=== PATIENT | male | born 1975 | race Caucasian/White ===

== ENCOUNTER 2025-03-09 10:46 | Emergency (ER) | payer MEDICAID, OTHER ==
[~2025-03-09] VITALS: Ht 182.9 cm; Wt 91.6 kg
[~2025-03-09 10:46] MED LIST: CYCL-1 PO
[2025-03-09 10:53] VITALS: TEMP 98.2
[2025-03-09 11:27] LABS: CREATININE 0.97 MG/DL (0.60-1.10); PRO BRAIN NATRIURETIC PEPTIDE < 30 PG/ML (0-125); TOTAL CARBON DIOXIDE 27.7 MMOL/L (24-32); eCRCL 100 ML/MIN; eGFR 82 ML/MIN
--- NOTE | 2025-03-09 11:27 | RADIOLOGY REPORT ---
CHEST RADIOGRAPH Indication: CP Technique: Single frontal view of the chest was obtained Comparison: None FINDINGS: Lines and Tubes: None Lungs: No focal consolidation. Pleura: No effusion. No pneumothorax. Cardiomediastinal contours: Unremarkable Bones: No acute osseous abnormality. IMPRESSION: No acute cardiopulmonary disease.
[2025-03-09 11:29] LABS: MEAN PLATELET VOLUME 9.4 FL (7.4-10.4)
--- NOTE | 2025-03-09 11:33 | ELECTROCARDIOGRAPH REPORT ---
[facility] Test Date: 2025-03-09 Test Time: 10:51:24 Pat Name: DONITA MCGRAW Department: EMERGENCY ROOM [id number] Room: Gender: M [facility]osp[facility] Consultant: TEJAL : 1975 Requested By: DAVE HEBERT Order Number: [id number] Reading MD: Dr. HOSESIN Phelps Measurements Intervals [place] Rate: 116 P: 75 VA: 148 QRS: 0 QRSD: 83 T: 48 QT: 333 QTc: 463 Interpretive Statements Sinus tachycardia Consider right atrial enlargement Indeterminate axis RSR' in V1 or V2, probably normal variant Electronically Signed On 03-10-2025 17:26:[address] HOSSEIN Phelps Please click the below link to view image of tracing.
[2025-03-09 11:56] LABS: RED CELL DISTRIBUTION WIDTH 12.7 % (11.5-14.5)
--- NOTE | 2025-03-09 12:11 | Physician Documentation ---
History of Present Illness ~ Chief Complaint: Chest Pain Stated Complaint: CHEST PAIN/HEART BURN/SHOULDER AND ARM PAIN Time Seen by MD: 11:54 HPI 50-year-old male presents to the ED with a complaint of chest burning and indigestion for several hours after taking a nap. States he does have a history of GERD or acid indigestion. Has been taking omeprazole for several years. States he felt like he was panicking during the incident. He has any history of heart failure [place] or any other cardiac abnormalities States he continues to have a burning sharp pain in the midepigastric region That he has had episodes previously where he vomited up streaks of blood. He adds that he thinks he may have an ulcer. Day of Onset: Mar 09, 2025 Tetanus within 5 Years?: Yes Allergies: Coded Allergies: Antihistamines - Alkylamine (Verified Allergy, Unknown, 05/21/17) Active Prescriptions See Medication Reconciliation Form. Medication Reconciliation Scheduled PRN Cyclobenzaprine* (Cyclobenzaprine*), 1 TABLET PO Q8H PRN for muscle spasms Past Medical History Past Medical History: No Pertinent History Past Surgical History: noncontributory Alcohol Use: None Drug Use: none Lives with: Family Lives In: Home Occupation: employed Review of Systems All Other Systems at this time: Reviewed and Negative ROS As stated above in the HPI, otherwise all systems are reviewed and negative. Physical Exam Vital Signs: Temperature: 98.2, Source: Oral, Heart Rate: 109, Respiratory Rate: 16, BP: 134/112, Pulse Oximetry: 99, Weight: 91.600 Oxygen Flow Rate: 0 Physical Exam General: Alert, no apparent distress. Respiratory: Lungs clear, no respiratory distress. Cardiovascular: Regular rate and rhythm, no murmurs. Gastrointestinal: Soft, tender midepigastric Extremities: Normal range of motion, no deformity. Neurologic: Oriented x4. Psychiatric: Normal mood and affect. Skin: Normal color, warm and dry. No edema, no ecchymosis. Progress Results/Orders Results/Orders Orders - PALOMO ALLEN RESIDENT IN DIAGNOSTIC RADIOLOGY Lidocaine 2% Viscous (Xylocaine 2% Visco (03/09/25 12:00) Ct Abdomen Pelvis (03/09/25 12:30) Completed Orders - PALOMO ALLEN RESIDENT IN DIAGNOSTIC RADIOLOGY Mag & Alum Hydrox/Simeth Susp (Maalox Or (03/09/25 12:00) Ct Abdomen Pelvis (03/09/25 12:30) Pantoprazole Tablet (Protonix) (03/09/25 12:28) Medications Received in ER Medications (Trade) Dose Ordered Sig/[place] Route PRN Reason Start Time Stop Time Status Last Admin Dose Admin (Xylocaine 2% Viscous 15mL cup) 15 ml Q4H PRN MM sore throat 03/09/25 12:00 03/09/25 12:40 15 ML (Protonix) 40 mg ONCE ONCE PO 03/09/25 12:28 03/09/25 12:29 DC 03/09/25 12:40 40 MG Vital Signs 03/09/25 03/09/25 03/09/25 10:53 12:12 12:16 Temp 98.2 Pulse 109 100 Resp 16 17 B/P (MAP) 134/112 142/98 (113) Pulse Ox 99 97 O2 Flow Rate 0 Laboratory Tests Test 03/09/25 10:55 03/09/25 13:20 White Blood Count 14.9 H Red Blood Count 5.29 Hemoglobin 17.3 Hematocrit 49.1 Mean Corpuscular Volume 92.8 Mean Corpuscular Hemoglobin 32.7 H Mean Corpuscular Hemoglobin Concent 35.2 Red Cell Distribution Width 12.7 Platelet Count 231 Mean Platelet Volume 9.4 Neutrophils (%) (Auto) 70.7 Lymphocytes (%) (Auto) 19.4 L Monocytes (%) (Auto) 7.2 Eosinophils (%) (Auto) 2.3 Basophils (%) (Auto) 0.4 Neutrophils # (Auto) 10.5 H Lymphocytes # (Auto) 2.9 Monocytes # (Auto) 1.1 H Eosinophils # (Auto) 0.3 Basophils # (Auto) 0.1 CBC Comment Sodium Level 141 Potassium Level 3.5 Chloride Level 101 Carbon Dioxide Level 27.7 Anion Gap 12 Blood Urea Nitrogen 11 Creatinine 0.97 Estimated GFR/1.73 m2 82 BUN/Creatinine Ratio 11.3 Glucose Level 119 H Calcium Level 9.7 Troponin I High Sensitivity 5 Pro-B-Type Natriuretic Peptide < 30 Albumin 4.5 Chemistry Comments Medical Decision Making Additional information obtaine: old records Findings CT findings did not make note any signs of diverticulitis. However CT findings did indicate moderate to marked abdominal distention. Upon further evaluation it was discovered in patient's external medication reconciliation that he is taking the higher dose of Ozempic the GLP 1 agonist Findings were not clear whether or not an ileus was evident but they exercise concern regarding this diagnosis Time patient is nontoxic appearing does not have peritonitis I feel it is prudent that he meets criteria for outpatient therapy and bowel rest which I explained to the patient. He no longer should be taking any GLP 1 agonist. Addition the patient states he has a history of digestion issues and I am not sure if this was reported to the prociderwho prescribed the GLP 1 initially this would have been a contraindication Differential Dx:Considerations: Include: Chest wall contusion, Flail chest, Myocardial contusion, Pneumothorax, Pulmonary contusion, Rib fracture, Renal contusion, Splenic fracture, Tension pneumothorax, Other Departure Disposition: 01 HOME / SELF CARE / HOMELESS Impression: Primary Impression: Gastric distention Additional Impression: Delayed gastric emptying Condition: Stable Additional Instructions: Stop taking Ozempic this is likely what is causing some if not all of your symptoms. Pre-existing digestive issues Ozempic is not a good choice of medication to manage your diabetes. There are others like Farxiga and Jardiance that are also effective at maintaining glycemic index and control Referrals: NO PRIMARY CARE PROVIDER (PCP) Signature Scribe Signature: fv Attestation: Scribed for Palomo Allen Security Assessor by Palomo Harrell NP . 03/09/25 13:30 PALOMO ALLEN NP Mar 09, 2025 12:11
[2025-03-09] MEDS: LIDOcaine 2% Viscous 15ml cup MM PRN (12:12)
[2025-03-09] MEDS: mag hydrox/Alum hydrox/simeth 30ml oral suspension PO ONE (12:12)
[2025-03-09] MEDS: pantoprazole 40mg Tablet.DR PO ONE (12:40)
--- NOTE | 2025-03-09 13:04 | RADIOLOGY REPORT ---
CLINICAL INFORMATION: Abdominal pain. TECHNIQUE: Axial CT images of the abdomen and pelvis were obtained without IV contrast. Coronal and sagittal reformatted images were obtained, reviewed, and stored. Evaluation of the parenchymal organs is limited without IV contrast. Evaluation of the bowel and mesentery is limited without oral contrast. All CT scans at this medical facility are performed using dose modulation techniques as appropriate to a performed exam including the following: Automated exposure control was utilized; adjustment of the MA and/or KV according to patient size; and use of iterative reconstruction technique. CTDIvol = 25.58 mGy DLP = 1362.75 mGy-cm COMPARISON: None FINDINGS: Lung bases: Ground-glass opacity in the right lower lobe measuring up to 2.4 cm. Liver: Grossly unremarkable in its noncontrast enhanced appearance. No abnormal density or focal lesion identified. Biliary: No calcified gallstones or biliary ductal dilatation. Spleen: Unremarkable. Pancreas: Grossly unremarkable in its noncontrast enhanced appearance. Adrenal glands: Unremarkable. No mass. Kidneys: No hydronephrosis. No renal or ureteral calculi. Aorta/Vascular: Scattered atherosclerotic calcification. No abdominal aortic aneurysm. Lymph nodes: No mass or lymphadenopathy. Bowel/mesentery: Moderate to marked gastric distention with fluid. Mildly distended fluid-filled small bowel loops. No transition point identified to suggest small bowel obstruction. Appendix is visualized and appears unremarkable. There is liquid stool in the colon. Scattered colonic diverticula without adjacent inflammatory changes to suggest diverticulitis. Wall thickening at the sigmoid colon is likely due to chronic diverticular disease No free air or free fluid. Pelvic organs: Coarse central calcifications in the prostate. Bladder: Unremarkable. No mass. Abdominal wall: Very small fat containing umbilical hernia. Bones: No acute fracture or suspicious intraosseous lesion. IMPRESSION: 1. Nonspecific mildly distended fluid-filled small bowel loops and liquid stool in the colon. Findings may be seen with ileus or enterocolitis in the appropriate clinical setting. No small bowel obstruction. 2. [id number] gastric distention. 3. Scattered colonic diverticula without adjacent inflammatory changes to suggest diverticulitis. 4. Ground-glass opacity in the right lower lobe measures up to 2.4 cm. Per Fleischner society recommendations, follow-up CT chest in 6-12 months recommended. If persistent on follow-up, recommend CT every 2 years until 5 years total stability demonstrated. 5. Additional findings as detailed above.
[2025-03-09 13:44] VITALS: BP 129/84; PULSE 94; RESP 17; O2SAT 95
== END 2025-03-09 13:46 | disposition home or self-care (01) ==
LOC: ER 10:46
DX: K30 Functional dyspepsia (principal); K31.89 Other diseases of stomach and duodenum; K21.9 Gastro-esophageal reflux disease without esophagitis; Z88.8 Allergy status to other drugs, medicaments and biological substances
CPT/HCPCS: 36415; 71045; 74176; 80048; 83880; 84484; 85025; 93005; 99285